=== PATIENT | male | born 1980 | race Caucasian/White ===

== ENCOUNTER 2016-12-11 17:32 | Emergency (ER) | payer SELFPAY ==
[~2016-12-11] VITALS: Wt 72.5 kg
[~2016-12-11 17:32] MED LIST: CEPH-443 PO; NEOM28OI TOP
== END 2016-12-11 20:26 | disposition left against medical advice (07) ==
LOC: FTE 17:32
DX: Z53.21 Procedure and treatment not carried out due to patient leaving prior to being seen by health care provider (principal)